=== PATIENT | male | born 1935 | race Hispanic/Latino ===

== ENCOUNTER 2018-01-11 00:18 | Inpatient (IN) | payer MEDICARE, OTHER ==
[2018-01-11 02:12] LABS: Basophils # (Auto) 0.1 K/mm3 (0.0-0.1); Basophils % (Auto) 0.4 % (0.0-1.8); Eosinophils # (Auto) 0.1 K/mm3 (0.0-0.4); Eosinophils % (Auto) 0.4 % (0.0-4.3); Hematocrit 44.7 % (35.5-45.6); Hemoglobin 15.1 gm/dl (11.8-15.2); Lymphocytes # (Auto) 1.5 K/mm3 (1.2-5.4); Lymphocytes % (Auto) 9.1 % (13.4-35.0); Mean Corpuscular HGB Conc 34 % (32-34); Mean Corpuscular Hemoglobin 32 pg (28-32); Mean Corpuscular Volume 94 fl (84-94); Monocytes % (Auto) 5.9 % (0.0-7.3); Platelet Count 218 K/mm3 (140-440); Red Blood Count 4.74 M/mm3 (3.65-5.03)
[2018-01-11 02:44] LABS: Bilirubin,Urine NEG (Negative); Blood,Urine NEG (Negative); Color,Urine Yellow (Yellow); Hyaline Casts,Urine 4 /LPF; Mucus,Urine 3+ /HPF; Urobilinogen,Urine < 2.0 mg/dL (<2.0)
[2018-01-11 02:58] LABS: BUN/Creatinine Ratio 34; Blood Urea Nitrogen 34 mg/dL (9-20); Calcium 8.8 mg/dL (8.4-10.2); Hemolysis Index 9
--- NOTE | 2018-01-11 03:35 | XRay Report ---
FINAL REPORT PROCEDURE: XR CHEST ROUTINE 2V TECHNIQUE: PA and lateral chest radiographs were obtained. CPT 93247 HISTORY: Shortness of breath COMPARISON: No prior studies are available for comparison. FINDINGS: Heart: Normal. Mediastinum/Vessels: Normal. Lungs/Pleural space: Lungs are clear and expanded. There are no infiltrates, effusions or pneumothoraces.. Bony thorax: No acute osseous abnormality. Other: IMPRESSION: Normal heart and lungs..
[2018-01-11 04:23] LABS: Free T4 (Free Thyroxine) 1.08 ng/dL (0.76-1.46)
--- NOTE | 2018-01-11 05:32 | Cat Scan Report ---
FINAL REPORT PROCEDURE: CT ANGIO CHEST TECHNIQUE: Computerized axial tomographic angiography of the chest and pulmonary arteries was performed after the IV injection of iodinated nonionic contrast. The image data was postprocessed using maximum intensity projection (MIP) and 2-dimensional multiplanar reformatted (MPR) techniques. The examination is specifically tailored to the evaluation of the pulmonary arteries per clinical request. HISTORY: Short of breath 786.09, chest pain 786.50, elevated ddimer, sob COMPARISON: No prior studies are available for comparison. FINDINGS: Heart and pericardium: The heart is borderline enlarged. There is prominent pericardial fat.. Thoracic aorta: There is no thoracic aortic aneurysm or dissection.. Pulmonary vasculature: There are distal emboli at the right basilar branches. There is no large central embolus.. Lymph nodes: No enlarged thoracic lymph nodes. 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 There are no active infiltrates.. Pleural space: No effusion, thickening, or pneumothorax. Musculoskeletal structures: No significant abnormality. Upper abdominal structures: No significant abnormality. IMPRESSION: Distal basilar pulmonary emboli on the right.. Dr. Dee was notified by telephone at 4:27 a.m. central time.
--- NOTE | 2018-01-11 05:34 | Emergency Department Report ---
ED Shortness of Breath HPI - General Chief Complaint: Dyspnea/Respdistress Stated Complaint: SOB Time Seen by Provider: 01/11/18 03:35 Source: patient Mode of arrival: Ambulatory Limitations: No Limitations - History of Present Illness Initial Comments: 82-year-old male with a past medical history hypertension presents complaining of waking up shortness of breath. Patient states he felt fine earlier today. Since waiting in the ED his symptoms have improved. He denies chest pain, nausea, vomiting, diaphoresis. Chronic leg edema unchanged. Patient states is compliant with medications but does not know when he takes. - Related Data Home Medications Medication Instructions Recorded Confirmed Last Taken Unobtainable 01/11/18 01/11/18 Unknown Allergies Allergy/AdvReac Type Severity Reaction Status Date / Time No Known Allergies Allergy Unverified 01/11/18 01:27 ED Review of Systems ROS: Stated complaint: SOB Other details as noted in HPI Comment: All other systems reviewed and negative Other: Constitutional: No fevers chills Eyes: No eye pain visual changes ENT: No ear pain or throat pain Neck: Denies pain Respiratory: Denies cough wheezing Cardiovascular: Denies chest pain GI: Denies abdominal pain, nausea, vomiting, diarrhea : Denies dysuria Musculoskeletal: Denies back pain Skin: Denies rash, lesions, erythema Neurologic: Denies headache, numbness, weakness Psychiatric: Denies suicidal ideation, hallucinations ED Past Medical Hx - Past Medical History Hx Hypertension: Yes - Social History Smoking Status: Former Smoker Substance Use Type: None - Medications Home Medications: Home Medications Medication Instructions Recorded Confirmed Last Taken Type Unobtainable 01/11/18 01/11/18 Unknown History ED Physical Exam - General Limitations: No Limitations - Other Other exam information: General: No limitations Head exam: Atraumatic, normocephalic Eyes exam: Normal appearance ENT: Moist mucous membrane, normal oropharynx Neck exam: Normal inspection, full range of motion, no meningismus nontender Respiratory exam: Clear to auscultation bilateral, no wheezes, rales, crackles Cardiovascular: Mild tachycardia Abdomen: Soft, nondistended, and nontender, with normal bowel sounds, no rebound, or guarding Extremity: Full range of motion normal inspection no deformity, 1+ lower extremity pitting edema, no calf tenderness or leg asymmetry Back: Normal Inspection, full range of motion, no tenderness Neurologic: Alert, cranial nerves intact, no motor or sensory deficit Psychiatric: normal affect, normal mood Skin: Warm, dry, intact ED Course Vital Signs 01/11/18 01/11/18 01/11/18 01:20 04:00 04:01 Temperature 97.1 F L Pulse Rate 129 H 100 H 100 H Respiratory 20 24 24 Rate Blood Pressure 170/112 Blood Pressure 155/96 [Right] O2 Sat by Pulse 96 97 Oximetry 01/11/18 04:06 Temperature Pulse Rate 98 H Respiratory 18 Rate Blood Pressure Blood Pressure 153/108 [Right] O2 Sat by Pulse 98 Oximetry ED Medical Decision Making - Lab Data Result diagrams: 01/11/18 01:56 01/11/18 01:56 Lab Results 01/11/18 01/11/18 01/11/18 Range/Units 01:56 01:56 03:42 WBC 16.5 H (4.5-11.0) K/mm3 RBC 4.74 (3.65-5.03) M/mm3 Hgb 15.1 (11.8-15.2) gm/dl Hct 44.7 (35.5-45.6) % MCV 94 (84-94) fl MCH 32 (28-32) pg MCHC 34 (32-34) % RDW 13.0 L (13.2-15.2) % Plt Count 218 (140-440) K/mm3 Lymph % (Auto) 9.1 L (13.4-35.0) % [place] % (Auto) 5.9 (0.0-7.3) % Eos % (Auto) 0.4 (0.0-4.3) % Baso % (Auto) 0.4 (0.0-1.8) % Lymph # 1.5 (1.2-5.4) K/mm3 [place] # 1.0 H (0.0-0.8) K/mm3 Eos # 0.1 (0.0-0.4) K/mm3 Baso # 0.1 (0.0-0.1) K/mm3 Seg Neutrophils % 84.2 H (40.0-70.0) % Seg Neutrophils # 13.9 H (1.8-7.7) K/mm3 D-Dimer 2338.53 H (0-234) ng/mlDDU Sodium 143 (137-145) mmol/L Potassium 4.4 (3.6-5.0) mmol/L Chloride 104.1 (98-107) mmol/L Carbon Dioxide 19 L (22-30) mmol/L Anion Gap 24 mmol/L BUN 34 H (9-20) mg/dL Creatinine 1.0 (0.8-1.5) mg/dL Estimated GFR > 60 ml/min BUN/Creatinine Ratio 34 % Glucose 159 H (75-100) mg/dL Calcium 8.8 (8.4-10.2) mg/dL Troponin T < 0.010 (0.00-0.029) ng/mL NT-Pro-B Natriuret Pep (0-900) pg/mL TSH (0.270-4.200) mlU/mL Free T4 (0.76-1.46) ng/dL Urine Color (Yellow) Urine Turbidity (Clear) Urine pH (5.0-7.0) Ur Specific [place] (1.003-1.030) Urine Protein (Negative) mg/dL Urine Glucose (UA) (Negative) mg/dL Urine Ketones (Negative) mg/dL Urine Blood (Negative) Urine Nitrite (Negative) Urine Bilirubin (Negative) Urine Urobilinogen (<2.0) mg/dL Ur Leukocyte Esterase (Negative) Urine WBC (Auto) (0.0-6.0) /HPF Urine RBC (Auto) (0.0-6.0) /HPF U Epithel Cells (Auto) (0-13.0) /HPF Hyaline Casts /LPF Urine Mucus /HPF 01/11/18 01/11/18 01/11/18 Range/Units 03:42 03:42 Unknown WBC (4.5-11.0) K/mm3 RBC (3.65-5.03) M/mm3 Hgb (11.8-15.2) gm/dl Hct (35.5-45.6) % MCV (84-94) fl MCH (28-32) pg MCHC (32-34) % RDW (13.2-15.2) % Plt Count (140-440) K/mm3 Lymph % (Auto) (13.4-35.0) % [place] % (Auto) (0.0-7.3) % Eos % (Auto) (0.0-4.3) % Baso % (Auto) (0.0-1.8) % Lymph # (1.2-5.4) K/mm3 [place] # (0.0-0.8) K/mm3 Eos # (0.0-0.4) K/mm3 Baso # (0.0-0.1) K/mm3 Seg Neutrophils % (40.0-70.0) % Seg Neutrophils # (1.8-7.7) K/mm3 D-Dimer (0-234) ng/mlDDU Sodium (137-145) mmol/L Potassium (3.6-5.0) mmol/L Chloride (98-107) mmol/L Carbon Dioxide (22-30) mmol/L Anion Gap mmol/L BUN (9-20) mg/dL Creatinine (0.8-1.5) mg/dL Estimated GFR ml/min BUN/Creatinine Ratio % Glucose (75-100) mg/dL Calcium (8.4-10.2) mg/dL Troponin T (0.00-0.029) ng/mL NT-Pro-B Natriuret Pep 818.6 (0-900) pg/mL TSH 4.730 H (0.270-4.200) mlU/mL Free T4 1.08 (0.76-1.46) ng/dL Urine Color Yellow (Yellow) Urine Turbidity Clear (Clear) Urine pH 5.0 (5.0-7.0) Ur Specific [place] 1.024 (1.003-1.030) Urine Protein 30 mg/dl (Negative) mg/dL Urine Glucose (UA) Neg (Negative) mg/dL Urine Ketones Tr (Negative) mg/dL Urine Blood Neg (Negative) Urine Nitrite Neg (Negative) Urine Bilirubin Neg (Negative) Urine Urobilinogen < 2.0 (<2.0) mg/dL Ur Leukocyte Esterase Tr (Negative) Urine WBC (Auto) 3.0 (0.0-6.0) /HPF Urine RBC (Auto) 3.0 (0.0-6.0) /HPF U Epithel Cells (Auto) 1.0 (0-13.0) /HPF Hyaline Casts 4 /LPF Urine Mucus 3+ /HPF - EKG Data -: EKG Interpreted by Me (lvh) EKG shows normal: sinus rhythm, axis (qrs -47), QRS complexes (90), ST-T waves ( nostemi/t inv) Rate: tachycardia (110) - Radiology Data Radiology results: report reviewed read by radiologist Xr chest: naf ct angio chest: right lung base small Pulmonary embolism - Medical Decision Making Patient has a pulmonary embolus and therefore will be admitted to the hospital for further treatment. Patient does not have any hypoxia at this time. Since patient does not have a list of his medication coags have been ordered prior to Lovenox administration. - Differential Diagnosis PE, KS, CHF, bronchitis, unstable angina Critical Care Time: No Critical care attestation.: If time is entered above; I have spent that time in minutes in the direct care of this critically ill patient, excluding procedure time. ED Disposition Clinical Impression: Pulmonary embolism, SOB (shortness of breath), HTN (hypertension) Disposition: 09 OP ADMIT IP TO THIS HOSP Is pt being admited?: Yes Condition: Stable Time of Disposition: 05:31 (Dr Gaming/hosp)
[2018-01-11] MEDS ORDERED: ZOFRAN IV PRN (06:05)
[2018-01-11] MEDS ORDERED: DULCOLAX PR PRN (06:05)
[2018-01-11] MEDS ORDERED: TYLENOL PO PRN (06:05)
[2018-01-11] MEDS ORDERED: MILK OF MAGNESIA PO PRN (06:05)
[2018-01-11 06:09] LABS: INR 1.02 (0.87-1.13); Partial Thromboplastin Time 31.2 Sec. (24.2-36.6)
--- NOTE | 2018-01-11 06:35 | History and Physical Report ---
History of Present Illness Date of examination: 01/11/18 History of present illness: 82-year-old man with a history of hypertension comes emergency room with complaints of shortness of breath. He denies recent travel Review Of Systems: Constitutional: no weight loss Ears, eyes, nose, mouth and throat: no nasal congestion, no nasal discharge, no sinus pressure, blurry vision, diplopia Neck: No neck pain or rigidity. Cardiovascular: chest pain, palpitations Respiratory: No cough Gastrointestinal: no , hematochezia Genitourinary : no dysuria, frequency , hematuria Musculoskeletal: no muscle ache Integumentary: no rash, no pruritis Neurological: no parathesias, focal weakness Endocrine: no cold or heat intolerance, no polyuria or polydipsia Hematologic/Lymphatic: no easy bruising, no easy bleeding, no gland swelling Allergic/Immunologic: no urticaria, no angioedema. PAST MEDICAL HISTORY: Hypertension PAST SURGICAL HISTORY: Back surgery SOCIAL HISTORY: Denies tobacco, drugs FAMILY HISTORY: Hypertension Medications and Allergies Allergies Allergy/AdvReac Type Severity Reaction Status Date / Time No Known Allergies Allergy Unverified 01/11/18 01:27 Home Medications Medication Instructions Recorded Confirmed Last Taken Type Unobtainable 01/11/18 01/11/18 Unknown History Active Meds: Active Medications Acetaminophen (Tylenol) 650 mg PO Q4H PRN PRN Reason: Pain MILD(1-3)/Fever >100.5/SEAMAN Bisacodyl (Dulcolax) 10 mg [place] QDAY PRN PRN Reason: Constipation unrelieved by MOM Enoxaparin Sodium (Lovenox) 100 mg SUB-Q Q12H JOSUE Magnesium Hydroxide (Milk Of Magnesia) 30 ml PO Q4H PRN PRN Reason: Constipation Ondansetron HCl (Zofran) 4 mg IV Q8H PRN PRN Reason: N/V unrelieved by Reglan Exam - Physical Exam Narrative exam: Gen. appearance: Patient lying in bed, no apparent distress HEENT: Normocephalic, atraumatic, pupils equally round and reactive to light, extraocular movement intact, and no sclericterus,. No JVD or thyromegaly or nodule,neck supple, no carotid bruit ,mucous membranes moist, no exudate or erythema Heart: S1, S2, regular rate and rhythm Lungs: Clear to auscultation bilaterally, breathing comfortable Abdomen: Positive bowel sounds, nontender, nondistended, no organomegaly Extremity: No edema, cyanosis, clubbing Skin: No rash, nodules, warm, dry Neuro: Oriented 3, cranial nerves II-12 intact, speech is fluent, motor and sensory intact - Constitutional Vitals: Temp Pulse Resp BP Pulse Ox 97.1 F L 98 H 18 153/108 98 01/11/18 01:20 01/11/18 04:06 01/11/18 04:06 01/11/18 04:06 01/11/18 04:06 Results - Labs CBC & Chem 7: 01/11/18 01:56 01/11/18 01:56 Labs: Abnormal lab results 01/11/18 01/11/18 01/11/18 Range/Units 01:56 01:56 03:42 WBC 16.5 H (4.5-11.0) K/mm3 RDW 13.0 L (13.2-15.2) % Lymph % (Auto) 9.1 L (13.4-35.0) % [place] # 1.0 H (0.0-0.8) K/mm3 Seg Neutrophils % 84.2 H (40.0-70.0) % Seg Neutrophils # 13.9 H (1.8-7.7) K/mm3 D-Dimer 2338.53 H (0-234) ng/mlDDU Carbon Dioxide 19 L (22-30) mmol/L BUN 34 H (9-20) mg/dL Glucose 159 H (75-100) mg/dL TSH (0.270-4.200) mlU/mL 01/11/18 Range/Units 03:42 WBC (4.5-11.0) K/mm3 RDW (13.2-15.2) % Lymph % (Auto) (13.4-35.0) % [place] # (0.0-0.8) K/mm3 Seg Neutrophils % (40.0-70.0) % Seg Neutrophils # (1.8-7.7) K/mm3 D-Dimer (0-234) ng/mlDDU Carbon Dioxide (22-30) mmol/L BUN (9-20) mg/dL Glucose (75-100) mg/dL TSH 4.730 H (0.270-4.200) mlU/mL - Imaging and Cardiology EKG: image reviewed Chest x-ray: image reviewed CT scan - chest: report reviewed Assessment and Plan Assessment Acute pulmonary emboli Leukocytosis, probably stress-induced Hypertension Plan Admit to medicine Start Full dose Lovenox, check Doppler of the lower extremities Obtain blood cultures DVT prophylaxis
[2018-01-11] MEDS: LOVENOX SUB-Q SCH ×2 (07:51→18:45)
--- NOTE | 2018-01-11 09:54 | Consultation ---
History of Present Illness - Reason for Consult Consult date: 01/11/18 - History of Present Illness 82 year old male presenting with SOB, found to have PE on CTA during ER workup. No h/o recent long travel or surgery. Pt cannot remember home meds (left list at home). Medications and Allergies Allergies Allergy/AdvReac Type Severity Reaction Status Date / Time No Known Allergies Allergy Unverified 01/11/18 01:27 Home Medications Medication Instructions Recorded Confirmed Last Taken Type Unobtainable 01/11/18 01/11/18 Unknown History Active Meds: Active Medications Acetaminophen (Tylenol) 650 mg PO Q4H PRN PRN Reason: Pain MILD(1-3)/Fever >100.5/SEAMAN Bisacodyl (Dulcolax) 10 mg [place] QDAY PRN PRN Reason: Constipation unrelieved by MOM Enoxaparin Sodium (Lovenox) 100 mg SUB-Q Q12H JOSUE Last Admin: 01/11/18 07:51 Dose: 100 mg Sodium Chloride (Nacl 0.9% 1000 Ml) 1,000 mls @ 100 mls/hr IV DIRECT JOSUE Magnesium Hydroxide (Milk Of Magnesia) 30 ml PO Q4H PRN PRN Reason: Constipation Ondansetron HCl (Zofran) 4 mg IV Q8H PRN PRN Reason: N/V unrelieved by Reglan Exam - Constitutional Vitals: Temp Pulse Resp BP Pulse Ox 97.5 F L 104 H 16 139/96 100 01/11/18 08:20 01/11/18 08:20 01/11/18 08:20 01/11/18 08:20 01/11/18 08:20 General appearance: Present: no acute distress - EENT Eyes: Present: PERRL ENT: hearing intact, clear oral mucosa - Neck Neck: Present: supple, normal ROM - Respiratory Respiratory effort: other (speaking in complete sentences, but with somewhat shallow breaths.) Results - Labs CBC & Chem 7: 01/11/18 01:56 01/11/18 01:56 Labs: Abnormal lab results 01/11/18 01/11/18 01/11/18 Range/Units 01:56 01:56 03:42 WBC 16.5 H (4.5-11.0) K/mm3 RDW 13.0 L (13.2-15.2) % Lymph % (Auto) 9.1 L (13.4-35.0) % [place] # 1.0 H (0.0-0.8) K/mm3 Seg Neutrophils % 84.2 H (40.0-70.0) % Seg Neutrophils # 13.9 H (1.8-7.7) K/mm3 D-Dimer 2338.53 H (0-234) ng/mlDDU Carbon Dioxide 19 L (22-30) mmol/L BUN 34 H (9-20) mg/dL Glucose 159 H (75-100) mg/dL TSH (0.270-4.200) mlU/mL 01/11/18 Range/Units 03:42 WBC (4.5-11.0) K/mm3 RDW (13.2-15.2) % Lymph % (Auto) (13.4-35.0) % [place] # (0.0-0.8) K/mm3 Seg Neutrophils % (40.0-70.0) % Seg Neutrophils # (1.8-7.7) K/mm3 D-Dimer (0-234) ng/mlDDU Carbon Dioxide (22-30) mmol/L BUN (9-20) mg/dL Glucose (75-100) mg/dL TSH 4.730 H (0.270-4.200) mlU/mL - Imaging and Cardiology CT scan - chest: report reviewed, image reviewed Assessment and Plan The CTA demonstrates distal basilar PE. Catheter directed thrombolysis is most appropriate for massive or submassive PE with hemodynamic instability. No intervention is indicated at this time. A lower extremity venous doppler is recommended to evaluate for DVT.
--- NOTE | 2018-01-11 10:19 | Event Note ---
Date: 01/11/18 Chart reviewed. Pt will cont on anticoagulation of lovenox and transition to eliquis in am. Vascular consulted. F/U echo.
[2018-01-11] MEDS ORDERED: TORADOL IV ONE (14:30)
--- NOTE | 2018-01-11 16:48 | Consultation ---
History of Present Illness Consult date: 01/11/18 Requesting physician: ARPITA SHAH Reason for consult: dyspnea History of present illness: 82 yo presents with increased SOB without wheezing, fevers, chills, chest pain, cough, hemoptysis. Denies immobility, trauma, long trips, hx of VTE. Active Medications Acetaminophen (Tylenol) 650 mg PO Q4H PRN PRN Reason: Pain MILD(1-3)/Fever >100.5/SEAMAN Bisacodyl (Dulcolax) 10 mg [place] QDAY PRN PRN Reason: Constipation unrelieved by MOM Enoxaparin Sodium (Lovenox) 100 mg SUB-Q Q12H [facility] Last Admin: 01/11/18 07:51 Dose: 100 mg Sodium Chloride (Nacl 0.9% 1000 Ml) 1,000 mls @ 100 mls/hr IV DIRECT JOSUE Magnesium Hydroxide (Milk Of Magnesia) 30 ml PO Q4H PRN PRN Reason: Constipation Ondansetron HCl (Zofran) 4 mg IV Q8H PRN PRN Reason: N/V unrelieved by Reglan Past History Past Medical History: other (HTN) Social history: full code. denies: smoking, alcohol abuse, prescription drug abuse, IV drug use Family history: other (No pulm issues reported) Medications and Allergies Allergies Allergy/AdvReac Type Severity Reaction Status Date / Time No Known Allergies Allergy Unverified 01/11/18 01:27 Home Medications Medication Instructions Recorded Confirmed Last Taken Type Unobtainable 01/11/18 01/11/18 Unknown History Active Meds: Active Medications Acetaminophen (Tylenol) 650 mg PO Q4H PRN PRN Reason: Pain MILD(1-3)/Fever >100.5/SEAMAN Bisacodyl (Dulcolax) 10 mg [place] QDAY PRN PRN Reason: Constipation unrelieved by MOM Enoxaparin Sodium (Lovenox) 100 mg SUB-Q Q12H [facility] Last Admin: 01/11/18 07:51 Dose: 100 mg Sodium Chloride (Nacl 0.9% 1000 Ml) 1,000 mls @ 100 mls/hr IV DIRECT JOSUE Magnesium Hydroxide (Milk Of Magnesia) 30 ml PO Q4H PRN PRN Reason: Constipation Ondansetron HCl (Zofran) 4 mg IV Q8H PRN PRN Reason: N/V unrelieved by Reglan Review of Systems All systems: negative Physical Examination Vital signs: Vital Signs Temp Pulse Resp BP Pulse Ox 97.1 F L 129 H 20 170/112 96 01/11/18 01:20 01/11/18 01:20 01/11/18 01:20 01/11/18 01:20 01/11/18 01:20 General appearance: no acute distress, alert Eyes: non-icteric ENT: oropharynx moist Neck: supple Effort: normal Ascultation: Right: rales (base), Left: clear Cardiovascular: regular rate and rhythm (no mrg) Gastrointestinal: normoactive bowel sounds, soft, non-tender, non-distended Integumentary: normal Extremities: no cyanosis, pink and warm, edema (1+ RLE) Musculoskeletal: no deformities normal mental status, non-focal exam, pupils equal and round, CN II-XII normal mood appropriate, affect normal Results - Laboratory Findings CBC and BMP: 01/11/18 01:56 01/11/18 01:56 PT/INR, D-dimer PT 13.9 Sec. (12.2-14.9) 01/11/18 03:42 INR 1.02 (0.87-1.13) 01/11/18 03:42 D-Dimer 2338.53 ng/mlDDU (0-234) H 01/11/18 03:42 Abnormal lab findings: Abnormal Labs 01/11/18 01/11/18 01/11/18 01:56 01:56 03:42 WBC 16.5 H RDW 13.0 L Lymph % (Auto) 9.[address] [place] # 1.0 H Seg Neutrophils % 84.2 H Seg Neutrophils # 13.9 H D-Dimer 2338.53 H Carbon Dioxide 19 L BUN 34 H Glucose 159 H TSH 01/11/18 03:42 WBC RDW Lymph % (Auto) [place] # Seg Neutrophils % Seg Neutrophils # D-Dimer Carbon Dioxide BUN Glucose TSH 4.730 H - Diagnostic Findings Chest x-ray: report reviewed, image reviewed CT scan - chest: report reviewed, image reviewed Assessment and Plan Imp: 1. Idiopathic acute PE and DVT 2. Essential HTN 3. Leukocytosis 4. Mild metabolic acidosis Rec: 1. Agree w/ full anticoagulation; should treat 6-12 months 2. Recommend age-appropriate cancer screening 3. Monitor Plan of care reviewed with patient, he understands/agrees Thanks for the consult. Will follow closely.
[2018-01-11] MEDS: NACL 0.9% 1000 ML 1,000 ML IV SCH (17:57)
[2018-01-12] MEDS: NACL 0.9% 1000 ML 1,000 ML IV SCH (04:15)
[2018-01-12 06:00] LABS: Basophils # (Auto) 0.1 K/mm3 (0.0-0.1); Basophils % (Auto) 0.7 % (0.0-1.8); Eosinophils # (Auto) 0.2 K/mm3 (0.0-0.4); Eosinophils % (Auto) 1.6 % (0.0-4.3); Hematocrit 37.9 % (35.5-45.6); Hemoglobin 12.5 gm/dl (11.8-15.2); Lymphocytes # (Auto) 2.5 K/mm3 (1.2-5.4); Lymphocytes % (Auto) 22.2 % (13.4-35.0); Mean Corpuscular HGB Conc 33 % (32-34); Mean Corpuscular Hemoglobin 32 pg (28-32); Mean Corpuscular Volume 96 fl (84-94); Monocytes % (Auto) 8.5 % (0.0-7.3); Platelet Count 172 K/mm3 (140-440); Red Blood Count 3.95 M/mm3 (3.65-5.03); Red Cell Distribution Width 13.3 % (13.2-15.2)
[2018-01-12 06:12] LABS: BUN/Creatinine Ratio 30; Blood Urea Nitrogen 27 mg/dL (9-20); Hemolysis Index 6
[2018-01-12] MEDS: LOVENOX SUB-Q SCH ×2 (06:31→18:06)
--- NOTE | 2018-01-12 10:00 | Progress Note ---
Assessment and Plan Assessment and plan: Acute pulmonary emboli. If ECO ok and cleared by Vascular surgery, we will d/c in am Leukocytosis, probably stress-induced Hypertension. Cont. antihypertensive meds Disposition. D/C in am on eliquis History Interval history: No new issues Hospitalist Physical - Constitutional Vitals: Temp Pulse Resp BP Pulse Ox 97.5 F L 67 18 135/85 99 01/12/18 08:32 01/12/18 08:32 01/12/18 05:40 01/12/18 08:32 01/12/18 05:40 General appearance: Present: no acute distress - EENT Eyes: Present: PERRL, EOM intact ENT: hearing intact, clear oral mucosa, dentition normal - Neck Neck: Present: supple, normal ROM - Respiratory Respiratory effort: normal Respiratory: bilateral: CTA - Cardiovascular Rhythm: regular Heart Sounds: Present: S1 & S2. Absent: gallop, rub - Extremities Extremities: no ischemia, No edema, Full ROM - Abdominal General gastrointestinal: soft, non-tender, non-distended, normal bowel sounds - Integumentary Integumentary: Present: clear, warm, dry - Neurologic Neurologic: CNII-XII intact, moves all extremities Results - Labs CBC & Chem 7: 01/12/18 05:14 01/12/18 05:14 Labs: Laboratory Last Values WBC 11.3 K/mm3 (4.5-11.0) H 01/12/18 05:14 RBC 3.95 M/mm3 (3.65-5.03) 01/12/18 05:14 Hgb 12.5 gm/dl (11.8-15.2) 01/12/18 05:14 Hct 37.9 % (35.5-45.6) D 01/12/18 05:14 MCV 96 fl (84-94) H 01/12/18 05:14 MCH 32 pg (28-32) 01/12/18 05:14 MCHC 33 % (32-34) 01/12/18 05:14 RDW 13.3 % (13.2-15.2) 01/12/18 05:14 Plt Count 172 K/mm3 (140-440) 01/12/18 05:14 Lymph % (Auto) 22.2 % (13.4-35.0) 01/12/18 05:14 [place] % (Auto) 8.5 % (0.0-7.3) H 01/12/18 05:14 Eos % (Auto) 1.6 % (0.0-4.3) 01/12/18 05:14 Baso % (Auto) 0.7 % (0.0-1.8) 01/12/18 05:14 Lymph # 2.5 K/mm3 (1.2-5.4) 01/12/18 05:14 [place] # 1.0 K/mm3 (0.0-0.8) H 01/12/18 05:14 Eos # 0.2 K/mm3 (0.0-0.4) 01/12/18 05:14 Baso # 0.1 K/mm3 (0.0-0.1) 01/12/18 05:14 Seg Neutrophils % 67.0 % (40.0-70.0) 01/12/18 05:14 Seg Neutrophils # 7.6 K/mm3 (1.8-7.7) 01/12/18 05:14 PT 13.9 Sec. (12.2-14.9) 01/11/18 03:42 INR 1.02 (0.87-1.13) 01/11/18 03:42 APTT 31.2 Sec. (24.2-36.6) 01/11/18 03:42 D-Dimer 2338.53 ng/mlDDU (0-234) H 01/11/18 03:42 Sodium 144 mmol/L (137-145) 01/12/18 05:14 Potassium 4.3 mmol/L (3.6-5.0) 01/12/18 05:14 Chloride 106.4 mmol/L (98-107) 01/12/18 05:14 Carbon Dioxide 25 mmol/L (22-30) 01/12/18 05:14 Anion Gap 17 mmol/L 01/12/18 05:14 BUN 27 mg/dL (9-20) H 01/12/18 05:14 Creatinine 0.9 mg/dL (0.8-1.5) 01/12/18 05:14 Estimated GFR > 60 ml/min 01/12/18 05:14 BUN/Creatinine Ratio 30 % 01/12/18 05:14 Glucose 89 mg/dL (75-100) 01/12/18 05:14 Calcium 8.0 mg/dL (8.4-10.2) L 01/12/18 05:14 Troponin T < 0.010 ng/mL (0.00-0.029) 01/11/18 01:56 NT-Pro-B Natriuret Pep 818.6 pg/mL (0-900) 01/11/18 03:42 TSH 4.730 mlU/mL (0.270-4.200) H 01/11/18 03:42 Free T4 1.08 ng/dL (0.76-1.46) 01/11/18 03:42 Urine Color Yellow (Yellow) 01/11/18 Unknown Urine Turbidity Clear (Clear) 01/11/18 Unknown Urine pH 5.0 (5.0-7.0) 01/11/18 Unknown Ur Specific [place] 1.024 (1.003-1.030) 01/11/18 Unknown Urine Protein 30 mg/dl mg/dL (Negative) 01/11/18 Unknown Urine Glucose (UA) Neg mg/dL (Negative) 01/11/18 Unknown Urine Ketones Tr mg/dL (Negative) 01/11/18 Unknown Urine Blood Neg (Negative) 01/11/18 Unknown Urine Nitrite Neg (Negative) 01/11/18 Unknown Urine Bilirubin Neg (Negative) 01/11/18 Unknown Urine Urobilinogen < 2.0 mg/dL (<2.0) 01/11/18 Unknown Ur Leukocyte Esterase Tr (Negative) 01/11/18 Unknown Urine WBC (Auto) 3.0 /HPF (0.0-6.0) 01/11/18 Unknown Urine RBC (Auto) 3.0 /HPF (0.0-6.0) 01/11/18 Unknown U Epithel Cells (Auto) 1.0 /HPF (0-13.0) 01/11/18 Unknown Hyaline Casts 4 /LPF 01/11/18 Unknown Urine Mucus 3+ /HPF 01/11/18 Unknown
--- NOTE | 2018-01-12 16:37 | Progress Note ---
Assessment and Plan Imp: 1. Idiopathic acute PE and DVT 2. Essential HTN 3. Leukocytosis 4. Mild metabolic acidosis Rec: 1. Agree w/ full anticoagulation; should treat 6-12 months; consider changing to Eliquis at d/c 2. Recommend age-appropriate cancer screening -> patient states this is up to date 3. May go home pulm-[id number] and f/u with Dr. Jacobo in 1-2 weeks Plan of care reviewed with patient, he understands/agrees Subjective Date of service: 01/12/18 Principal diagnosis: Acute PE Interval history: No events. No complaints. SOB better. Ambulating in room. Active Medications Acetaminophen (Tylenol) 650 mg PO Q4H PRN PRN Reason: Pain MILD(1-3)/Fever >100.5/SEAMAN Bisacodyl (Dulcolax) 10 mg [place] QDAY PRN PRN Reason: Constipation unrelieved by MOM Enoxaparin Sodium (Lovenox) 100 mg SUB-Q Q12H JOSUE Last Admin: 01/12/18 06:31 Dose: 100 mg Sodium Chloride (Nacl 0.9% 1000 Ml) 1,000 mls @ 100 mls/hr IV DIRECT JOSUE Last Admin: 01/12/18 04:15 Dose: 100 mls/hr Magnesium Hydroxide (Milk Of Magnesia) 30 ml PO Q4H PRN PRN Reason: Constipation Last Admin: 01/11/18 21:39 Dose: 30 ml Ondansetron HCl (Zofran) 4 mg IV Q8H PRN PRN Reason: N/V unrelieved by Reglan Objective Vital Signs - 12hr 01/12/18 01/12/18 01/12/18 05:40 08:32 10:00 Temperature 97.6 F 97.5 F L Pulse Rate 75 67 Pulse Rate [ 67 Left Radial] Pulse Rate [ 67 Right Radial] Respiratory 18 18 Rate Blood Pressure 146/80 135/85 [Right] O2 Sat by Pulse 99 Oximetry Constitutional: no acute distress, alert Eyes: non-icteric ENT: oropharynx moist Neck: supple Effort: normal Ascultation: Bilateral: clear Cardiovascular: regular rate and rhythm (no mrg) Gastrointestinal: normoactive bowel sounds, soft, non-tender, non-distended Integumentary: normal Extremities: no cyanosis, pink and warm, edema (1+ RLE) Neurologic: normal mental status, non-focal exam, pupils equal and round, CN II- XII normal Psychiatric: mood appropriate, affect normal CBC and BMP: 01/12/18 05:14 01/12/18 05:14 ABG, PT/INR, D-dimer: PT/INR, D-dimer PT 13.9 Sec. (12.2-14.9) 01/11/18 03:42 INR 1.02 (0.87-1.13) 01/11/18 03:42 D-Dimer 2338.53 ng/mlDDU (0-234) H 01/11/18 03:42 Abnormal lab findings: Abnormal Labs 01/11/18 01/11/18 01/11/18 01:56 01:56 03:42 WBC 16.5 H MCV RDW 13.0 L Lymph % (Auto) 9.1 L [place] % (Auto) [place] # 1.0 H Seg Neutrophils % 84.2 H Seg Neutrophils # 13.9 H D-Dimer 2338.53 H Carbon Dioxide 19 L BUN 34 H Glucose 159 H Calcium TSH 01/11/18 01/12/18 01/12/18 03:42 05:14 05:14 WBC 11.3 H MCV 96 H RDW Lymph % (Auto) [place] % (Auto) 8.5 H [place] # 1.0 H Seg Neutrophils % Seg Neutrophils # D-Dimer Carbon Dioxide BUN 27 H Glucose Calcium 8.0 L TSH 4.730 H Chest x-ray: report reviewed, image reviewed CT scan - chest: report reviewed, image reviewed
[2018-01-13 05:08] LABS: Basophils # (Auto) 0.1 K/mm3 (0.0-0.1); Basophils % (Auto) 1.1 % (0.0-1.8); Eosinophils # (Auto) 0.3 K/mm3 (0.0-0.4); Eosinophils % (Auto) 3.5 % (0.0-4.3); Hematocrit 35.9 % (35.5-45.6); Hemoglobin 12.1 gm/dl (11.8-15.2); Lymphocytes # (Auto) 2.5 K/mm3 (1.2-5.4); Lymphocytes % (Auto) 31.6 % (13.4-35.0); Mean Corpuscular HGB Conc 34 % (32-34); Mean Corpuscular Hemoglobin 32 pg (28-32); Mean Corpuscular Volume 95 fl (84-94); Monocytes # (Auto) 0.7 K/mm3 (0.0-0.8); Monocytes % (Auto) 8.6 % (0.0-7.3); Platelet Count 173 K/mm3 (140-440); Red Cell Distribution Width 13.1 % (13.2-15.2)
[2018-01-13 05:30] LABS: BUN/Creatinine Ratio 21; Blood Urea Nitrogen 19 mg/dL (9-20); Calcium 7.8 mg/dL (8.4-10.2); Hemolysis Index 7
[2018-01-13] MEDS: LOVENOX SUB-Q SCH (06:05)
[2018-01-13 09:48] VITALS: BP 175/87
--- NOTE | 2018-01-13 10:05 | Discharge Summary ---
Providers - Providers Date of Admission: 01/11/18 06:05 Date of discharge: 01/13/18 Attending physician: ARPITA SHAH 01/11/18 08:34 Consult to Physician [CONS] Routine Consulting Provider: MOHSEN BRAXTON Reason For Exam: PE Place consult to:: Dr. Braxton Notified:: Alicia RN Phone number called:: Was contact made?: Yes If yes, spoke with:: Stefanie-answering service Time called:: 09:01 Comment:: Call transferred and consult info given to Dr. Cody Primary care physician: PARRISH GALLAGHER Hospitalization Condition: Stable Disposition: DC-01 TO HOME OR SELFCARE Core Measure Documentation - Palliative Care Palliative Care/ Comfort Measures: Not Applicable Exam - Constitutional Vitals: Temp Pulse Resp BP Pulse Ox 97.5 F L 78 18 175/87 94 01/13/18 08:29 01/13/18 08:29 01/13/18 08:29 01/13/18 08:29 01/13/18 08:29 Plan Follow up with: PARRISH GALLAGHER MD [Primary Care Provider] - 7 Days Prescriptions: Apixaban [Eliquis] 5 mg PO DAILY #40 tablet
== END 2018-01-13 13:36 | disposition home or self-care (01) | DRG 299 ==
LOC: ED 00:18 → SUATTDRO 00:18 → 4A 06:05
PROVIDERS: ADMIT Internal Medicine; ATTEND Hospitalist
DX: I82.409 Acute embolism and thrombosis of unspecified deep veins of unspecified lower extremity (principal); I26.99 Other pulmonary embolism without acute cor pulmonale; E87.2 Acidosis; I10 Essential (primary) hypertension; D72.829 Elevated white blood cell count, unspecified; R60.0 Localized edema; Z82.49 Family history of ischemic heart disease and other diseases of the circulatory system
CPT/HCPCS: 36415; 71046; 71275; 80048; 81001; 82962; 83880; 84439; 84443; 84484; 85025; 85379; 85610; 85730; 87040; 93005; 93010; 93306; 93970; J1650; J1885; J7030; Q9967

== ENCOUNTER 2018-01-15 17:23 | Emergency (ER) | payer MEDICARE, OTHER ==
--- NOTE | 2018-01-15 17:50 | Emergency Department Report ---
HPI - General Chief Complaint: Back Pain/Injury Time Seen by Provider: 01/15/18 17:35 - HPI HPI: 82-year-old male presents to the emergency department, driving himself and, with complaint of left lower back and/or sacral pain. The patient was just discharged from the hospital here at [facility] this morning after being here for a few days after a right lower lung distal PE was found. He says that this was not the reason why he came into the hospital originally. He says that he was sent home with some medication, which he cannot remember the name of, that is at [facility] but was told it was $300 to fill it and therefore he did not. He is unsure whether it was a blood thinner or pain medication but his discharge instructions only show a prescription for Eliquist. He says that when he was discharged this morning he had received some pain medication prior to discharge and it seems to work with his discomfort but once he returned home and the medication wore off he was still having pain. It worsens when he is standing up or moving around but sometimes still will affect him when he is sitting. He denies any problems with bowel or bladder, numbness or paresthesias or any neurological deficits. His primary care physician is Dr. Parrish Alvarez. ED Past Medical Hx - Past Medical History Hx Hypertension: Yes - Social History Smoking Status: Never Smoker - Medications Home Medications: Home Medications Medication Instructions Recorded Confirmed Last Taken Type Apixaban [Eliquis] 5 mg PO DAILY #40 tablet 01/13/18 Unknown Rx ED Review of Systems ROS: Stated complaint: BACK PAIN Other details as noted in HPI Comment: All other systems reviewed and negative Constitutional: denies: chills, fever Eyes: denies: eye pain, eye discharge, vision change ENT: denies: ear pain, throat pain Respiratory: denies: cough, shortness of breath, wheezing Cardiovascular: denies: chest pain, palpitations Gastrointestinal: denies: abdominal pain, nausea, diarrhea Genitourinary: denies: urgency, dysuria Musculoskeletal: back pain. denies: arthralgia Skin: denies: rash, lesions Neurological: denies: headache, weakness, paresthesias Physical Exam - Physical Exam Vital Signs: Vital Signs 01/15/18 17:26 Temperature 98.2 F Pulse Rate 78 Respiratory 18 Rate Blood Pressure 147/85 O2 Sat by Pulse 96 Oximetry Physical Exam: GENERAL: The patient is well-developed well-nourished. HENT: Normocephalic. Atraumatic. Patient has moist mucous membranes. EYES: Extraocular motions are intact. Pupils equal reactive to light bilaterally. NECK: Supple. Trachea is midline. CHEST/LUNGS: Clear to auscultation. There is no respiratory distress noted. HEART/CARDIOVASCULAR: Regular. There is no tachycardia. There is no murmur. ABDOMEN: Abdomen is soft, nontender. Patient has normal bowel sounds. There is no abdominal distention. SKIN: Skin is warm and dry. NEURO: The patient is awake, alert, and oriented. The patient is cooperative. The patient has no focal neurologic deficits. The patient has normal speech. Patient has normal baseline gait. MUSCULOSKELETAL: There is no tenderness or deformity. There is no limitation range of motion. There is no evidence of acute injury. BACK: No midline thoracic or lumbar tenderness to palpation, step-off or deformity. He has some slightly reproducible tenderness to palpation to the left lower back around the sacroiliac junction. ED Course Vital Signs 01/15/18 17:26 Temperature 98.2 F Pulse Rate 78 Respiratory 18 Rate Blood Pressure 147/85 O2 Sat by Pulse 96 Oximetry ED Medical Decision Making - Radiology Data Radiology results: image reviewed interpreted by me: X-ray of the sacroiliac joints does not show any fracture, dislocation or any other acute process. - Medical Decision Making While the patient was recently here for a pulmonary embolism, he came in today for some left lower lateral back pain that apparently he was having when he was in the emergency department last week as well. Patient drove himself in and walked into the emergency department. He does not have any problems with bowel or bladder, numbness or paresthesias or any neurological deficits. There was no recent trauma. He said that the pain medication he was given while in the hospital helped with this back pain. In looking back at his records the only medication he got was Toradol. He was given a dose of IM Toradol here with some relief. I did an x-ray of his sacroiliac junction that did not show any fracture, sedation or any acute process and this was confirmed by the radiologist reading. The patient began asking for discharge home. He was encouraged to follow up with his primary care doctor sooner than the one week appointment he already has set up. He also has been encouraged to return to the emergency Department with any worsening of his symptoms or any acute distress. I believe that the medication that the patient said was hard or expensive to fill was his blood thinning medication. He was given a dose of that here so that he does not have to deal with the pharmacy this evening and then was given a prescription card for a Eliquist to be filled very cheaply. We discussed fall precautions and bleeding precautions. - Differential Diagnosis sacroiliitis, neuropathy, muscle spasm Critical Care Time: No Critical care attestation.: If time is entered above; I have spent that time in minutes in the direct care of this critically ill patient, excluding procedure time. ED Disposition Clinical Impression: Sacroiliac pain Back pain Qualifiers: Back pain location: low back pain Chronicity: unspecified Back pain laterality : left Sciatica presence: without sciatica Qualified Code(s): M54.5 - Low back pain Disposition: TO HOME OR SELFCARE Is pt being admited?: No Condition: Stable Instructions: Sacroiliitis (ED), Back Pain (ED) Additional Instructions: Please follow-up with your primary care physician as soon as possible. I have given you a referral for a local orthopedist, Dr. Stevenson, to follow up regarding your back pain. Return to the emergency Department with any worsening of your symptoms or any acute distress. As we discussed, the fact that you are on the Eliquist for your previous diagnosis of pulmonary embolism/blood clot in the lung, means that you're more prone to bleeding. For this reason please take precautions and make sure you do not have any falls. Referrals: PRIMARY MD ABUNDIO [Primary Care Provider] - 3-5 Days DINONA STEVENSON MD [Staff Physician] - 3-5 Days PARRISH GALLAGHER MD [Staff Physician] - [facility] Time of Disposition: 19:35
[2018-01-15] MEDS ORDERED: TORADOL IM ONE (17:56)
[2018-01-15 18:57] VITALS: BP 129/77
[2018-01-15] MEDS ORDERED: ELIQUIS PO ONE (19:29)
--- NOTE | 2018-01-15 19:29 | XRay Report ---
FINAL REPORT PROCEDURE: XR SACROILIAC JOINTS 3+V TECHNIQUE: Sacroiliac joints, three views HISTORY: low left back pain COMPARISON: No prior studies are available for comparison. FINDINGS: No fracture is visible. There is mild sclerosis adjacent to the left sacroiliac joint, which is likely degenerative. No evidence of fusion or osseous erosions. Degenerative changes of the lower lumbar spine are noted. IMPRESSION: No acute osseous abnormality is seen
== END 2018-01-15 20:18 | disposition home or self-care (01) ==
LOC: ED 17:23
DX: M53.3 Sacrococcygeal disorders, not elsewhere classified (principal); M54.5 Low back pain; I10 Essential (primary) hypertension
CPT/HCPCS: 72202; 96372; 99283; J1885

== ENCOUNTER 2018-03-08 07:31 | Emergency (ER) | payer MEDICARE, OTHER ==
[2018-03-08] MEDS ORDERED: NACL 0.9% 1000 ML 1,000 ML IV ONE (08:08)
[2018-03-08 08:34] LABS: Basophils # (Auto) 0.1 K/mm3 (0.0-0.1); Basophils % (Auto) 0.7 % (0.0-1.8); Eosinophils # (Auto) 0.2 K/mm3 (0.0-0.4); Eosinophils % (Auto) 2.2 % (0.0-4.3); Hematocrit 41.8 % (35.5-45.6); Hemoglobin 14.2 gm/dl (11.8-15.2); Lymphocytes # (Auto) 2.1 K/mm3 (1.2-5.4); Lymphocytes % (Auto) 23.8 % (13.4-35.0); Mean Corpuscular HGB Conc 34 % (32-34); Mean Corpuscular Hemoglobin 32 pg (28-32); Mean Corpuscular Volume 92 fl (84-94); Monocytes # (Auto) 0.6 K/mm3 (0.0-0.8); Monocytes % (Auto) 7.4 % (0.0-7.3); Platelet Count 253 K/mm3 (140-440); Red Blood Count 4.52 M/mm3 (3.65-5.03); Red Cell Distribution Width 13.2 % (13.2-15.2)
[2018-03-08 08:36] LABS: Bilirubin,Urine NEG (Negative); Blood,Urine NEG (Negative); Color,Urine Yellow (Yellow); Mucus,Urine FEW /HPF; Protein,Urine <15 mg/dL mg/dL (Negative); Urobilinogen,Urine < 2.0 mg/dL (<2.0)
[2018-03-08 08:40] LABS: Alanine Aminotransferase 23 units/L (7-56); Albumin 3.8 g/dL (3.9-5); BUN/Creatinine Ratio 30; Blood Urea Nitrogen 30 mg/dL (9-20); Calcium 8.9 mg/dL (8.4-10.2); Hemolysis Index 6; Lipase 28 units/L (13-60)
[2018-03-08 08:45] LABS: INR 0.96 (0.87-1.13)
--- NOTE | 2018-03-08 10:39 | Emergency Department Report ---
HPI - General Chief Complaint: GI Bleed Time Seen by Provider: 03/08/18 10:23 - HPI HPI: Room 2 The patient is an 83-year-old male presenting with a chief complaint of "blood in stool." The patient states this morning after hymenal bowel movement he noticed blood in the stool and on the full taper. Patient states the blood was bright red. Patient denies pain of any type including abdominal or rectal. Patient denies fever, patient denies nausea/vomiting. Patient states he's never had a colonoscopy Location: Gastrointestinal system Duration: This morning Quality: Painless Severity:. Moderate Modifying factors: [see above] Context: [see above] Mode of transportation: [not driving] ED Past Medical Hx - Past Medical History Hx Hypertension: Yes - Surgical History Past Surgical History?: No - Family History Family history: no significant - Social History Smoking Status: Former Smoker (none 50 years) Substance Use Type: None - Medications Home Medications: Home Medications Medication Instructions Recorded Confirmed Last Taken Type Apixaban [Eliquis] 5 mg PO DAILY #40 tablet 01/13/18 Unknown Rx Hydrocortisone [Anucort-HC SUPPOS] 25 mg RC BID #10 supp.rect 03/08/18 Unknown Rx ED Review of Systems ROS: Stated complaint: BLOOD IN URINE Other details as noted in HPI Constitutional: denies: fever Gastrointestinal: hematochezia. denies: abdominal pain, nausea, vomiting, diarrhea Physical Exam - Physical Exam Vital Signs: Vital Signs 03/08/18 07:45 Temperature 97.5 F L Pulse Rate 67 Respiratory 16 Rate Blood Pressure 160/104 O2 Sat by Pulse 98 Oximetry Physical Exam: GENERAL: The patient is well-developed well-nourished male lying on stretcher not appearing to be in acute distress. [] HEENT: Normocephalic. Atraumatic. Extraocular motions are intact. Patient has moist mucous membranes. NECK: Supple. Trachea midline CHEST/LUNGS: Clear to auscultation. There is no respiratory distress noted. HEART/CARDIOVASCULAR: Regular. There is no tachycardia. There is no gallop rub or murmur. ABDOMEN: Abdomen is soft, nontender. Patient has normal bowel sounds. There is no abdominal distention. SKIN: There is no rash. There is no edema. There is no diaphoresis. NEURO: The patient is awake, alert, and oriented. The patient is cooperative. The patient has normal speech MUSCULOSKELETAL: There is no evidence of acute injury. RECTAL: Guaiac positive. No internal or external hemorrhoids felt ED Course Vital Signs 03/08/18 07:45 Temperature 97.5 F L Pulse Rate 67 Respiratory 16 Rate Blood Pressure 160/104 O2 Sat by Pulse 98 Oximetry - Consultations Consultation #1: 03/08/18 11:02 Gastroenterology paged 03/08/18 11:[address] Holger Garcia (including orthostatics, labs and exam)- status patient is reliable immediately discharged home with strong warnings and given follow-up in the office ED Medical Decision Making - Lab Data Result diagrams: 03/08/18 08:11 03/08/18 08:11 Laboratory Tests 03/08/18 03/08/18 03/08/18 07:57 08:11 08:11 WBC 8.6 RBC 4.52 Hgb 14.2 Hct 41.8 MCV 92 MCH 32 MCHC 34 RDW 13.2 Plt Count 253 Lymph % (Auto) 23.8 Reeves % (Auto) 7.4 H Eos % (Auto) 2.2 Baso % (Auto) 0.7 Lymph # 2.1 Reeves # 0.6 Eos # 0.2 Baso # 0.1 Seg Neutrophils % 65.9 Seg Neutrophils # 5.7 PT 13.3 INR 0.96 APTT 31.0 Sodium Potassium Chloride Carbon Dioxide Anion Gap BUN Creatinine Estimated GFR BUN/Creatinine Ratio Glucose Calcium Total Bilirubin AST ALT Alkaline Phosphatase Total Creatine Kinase Total Protein Albumin Albumin/Globulin Ratio Lipase Urine Color Yellow Urine Turbidity Clear Urine pH 5.0 Ur Specific Milner 1.020 Urine Protein <15 mg/dl Urine Glucose (UA) Neg Urine Ketones Tr Urine Blood Neg Urine Nitrite Neg Urine Bilirubin Neg Urine Urobilinogen < 2.0 Ur Leukocyte Esterase Neg Urine WBC (Auto) 1.0 Urine RBC (Auto) 3.0 U Epithel Cells (Auto) 1.0 Urine Mucus Few Blood Type Antibody Screen 03/08/18 03/08/18 03/08/18 08:11 08:11 08:11 WBC RBC Hgb Hct MCV MCH MCHC RDW Plt Count Lymph % (Auto) Reeves % (Auto) Eos % (Auto) Baso % (Auto) Lymph # Reeves # Eos # Baso # Seg Neutrophils % Seg Neutrophils # PT INR APTT Sodium 138 Potassium 4.3 Chloride 104.1 Carbon Dioxide 27 Anion Gap 11 BUN 30 H Creatinine 1.0 Estimated GFR > 60 BUN/Creatinine Ratio 30 Glucose 118 H Calcium 8.9 Total Bilirubin 0.50 AST 26 ALT 23 Alkaline Phosphatase 108 Total Creatine Kinase 200 H Total Protein 7.3 Albumin 3.8 L Albumin/Globulin Ratio 1.1 Lipase 28 Urine Color Urine Turbidity Urine pH Ur Specific Milner Urine Protein Urine Glucose (UA) Urine Ketones Urine Blood Urine Nitrite Urine Bilirubin Urine Urobilinogen Ur Leukocyte Esterase Urine WBC (Auto) Urine RBC (Auto) U Epithel Cells (Auto) Urine Mucus Blood Type A POSITIVE Antibody Screen Negative - Medical Decision Making Conversation with Dr. Garcia was discussed with the patient. Patient verbalizes understanding. Patient verbalizes strong warnings to return should he again noticed rectal bleeding or any other symptoms - Differential Diagnosis internal hemorrhoid, colonic polyp, colonic mass Critical care attestation.: If time is entered above; I have spent that time in minutes in the direct care of this critically ill patient, excluding procedure time. ED Disposition Clinical Impression: Rectal bleeding Disposition: DC-01 TO HOME OR SELFCARE Is pt being admited?: No Does the pt Need Aspirin: No Condition: Stable Instructions: Rectal Bleeding (ED) Additional Instructions: Return to the emergency department immediately should you develop worsening symptoms, fever, inability to tolerate food or liquid or any other concerns. Prescriptions: Hydrocortisone [Anucort-HC SUPPOS] 25 mg RC BID #10 supp.rect Referrals: PRIMARY CARE, [Primary Care Provider] - 3-5 Days TABITHA GARCIA MD [Staff Physician] - [facility] (Dr. Garcia is a insurance claims adjuster. Please follow-up with him for further evaluation) Forms: Accompanied Note Time of Disposition: 11:50
[2018-03-08 12:43] VITALS: BP 135/84
== END 2018-03-08 12:43 | disposition home or self-care (01) ==
LOC: ED 07:31
DX: K62.5 Hemorrhage of anus and rectum (principal); I10 Essential (primary) hypertension
CPT/HCPCS: 36415; 80053; 81001; 82271; 82550; 83690; 85025; 85610; 85730; 86850; 86900; 86901; 96360; 96361; 99284; J7030